=== PATIENT | female | born 1965 | race Caucasian/White ===

== ENCOUNTER 2018-01-23 19:41 | Inpatient (IN) | payer MEDICARE ==
[~2018-01-23] VITALS: Ht 167.6 cm; Wt 90.4 kg
[~2018-01-23 19:41] MED LIST: CLON0.1T PO; METH5TAB2 PO; OXYC-307 PO; estrogen PO
[2018-01-23 20:22] LABS: BASOPHILS # (AUTO) 0.02 x10^3/uL (0-0.1); BASOPHILS % (AUTO) 0 % (0-1); EOSINOPHILS % (AUTO) 0 % (1-7); LYMPHOCYTES # (AUTO) 2.15 x10^3/uL (1-3.4); LYMPHOCYTES % (AUTO) 14 % (22-44); MD NO; MEAN CORPUSCULAR HEMOGLOBIN 26.8 pg (27.0-34.8); MEAN CORPUSCULAR VOLUME 83.9 fL (80-100); MEAN PLATELET VOLUME 9.1 fL (7.4-10.4); MONOCYTES # (AUTO) 1.06 x10^3/uL (0.2-0.8); MONOCYTES % (AUTO) 7 % (2-9); NEUTROPHILS # (AUTO) 12.06 x10^3/uL (1.8-6.8); NEUTROPHILS % (AUTO) 79 % (42-75); PLATELET COUNT 215 x10^3/uL (130-400); RED BLOOD COUNT 6.53 x10^6/uL (3.82-5.3); RED CELL DISTRIBUTION WIDTH 17.4 % (9.6-15.2)
[2018-01-23 20:32] LABS: ALBUMIN 3.1 g/dL (3.4-5.0); ANION GAP 10 mmol/L (5-15); CALCIUM 8.5 mg/dL (8.5-10.1); CHLORIDE 98 mmol/L (98-107)
[2018-01-23 20:35] LABS: CREATININE 0.92 mg/dL (0.55-1.02)
[2018-01-23 20:44] LABS: TROPONIN I 0.137 ng/mL (0.000-0.045)
[2018-01-23] MEDS ORDERED: ASPIRIN 81 MG TABLET CHEW ONE ×2 (20:48→20:49)
[2018-01-23] MEDS ORDERED: ASPIRIN 81 MG TABLET CHEW PO ONE (21:00)
[2018-01-23] MEDS ORDERED: FUROSEMIDE 40 MG/4 ML ONE (21:08)
[2018-01-23] MEDS ORDERED: FUROSEMIDE 40 MG/4 ML IV ONE (21:30)
[2018-01-23] MEDS ORDERED: HEPARIN 5,000 UNITS/ML, 1ML ONE (21:43)
[2018-01-23] MEDS ORDERED: HEPARIN 25,000 UNITS/500ML PMX 500 ML ONE (21:43)
[2018-01-23] MEDS: HEPARIN 25,000 UNITS/500ML PMX 500 ML IV PRN (21:52)
[2018-01-23] MEDS ORDERED: HEPARIN 5,000 UNITS/ML, 1ML IV ONE (22:00)
[2018-01-23] MEDS ORDERED: GUAIFENESIN/DM 200-20MG, 10ML UDC PO PRN (22:30)
[2018-01-23] MEDS ORDERED: ACETAMINOPHEN 325 MG TABLET PO PRN (22:30)
[2018-01-23] MEDS ORDERED: BISACODYL 10 MG SUPP PR PRN (22:30)
[2018-01-23] MEDS ORDERED: NITROGLYCERIN 0.4 MG BOTTLE (25 TABS) SL PRN (22:30)
[2018-01-23] MEDS ORDERED: morphine SULFATE 10 MG/ML, 1ML IVPush PRN (22:30)
[2018-01-23] MEDS: FUROSEMIDE 20 MG/2 ML IV SCH (22:30)
[2018-01-23] MEDS ORDERED: ALBUTEROL SULFATE 2.5 MG/3 ML NPPB PRN (22:30)
[2018-01-23] MEDS: NICOTINE 21 MG/24 HR PATCH.TD24 TD SCH (22:30)
[2018-01-23] MEDS ORDERED: POLYETHYLENE GLYCOL 17 GM PACKET PO PRN (22:30)
[2018-01-23] MEDS ORDERED: ONDANSETRON ODT 4 MG PO PRN (22:30)
[2018-01-23 22:42] LABS: FREE T4 (FREE THYROXINE) 1.01 ng/dL (0.76-1.46); THYROID STIMULATING HORMONE 0.246 mIU/L (0.358-3.740)
[2018-01-23 22:53] VITALS: BP 111/75
[2018-01-23] MEDS: SODIUM CHLORIDE FLUSH 10ML SYR IVF SCH (23:24)
[2018-01-24 00:33] LABS: MICROSCOPIC NOT IND
[2018-01-24 00:34] LABS: CULTURE INDICATED? NO
[2018-01-24 02:27] LABS: MEAN CORPUSCULAR HEMOGLOBIN 26.9 pg (27.0-34.8); MEAN CORPUSCULAR HGB CONC 32.2 g/dL (32.4-35.8); MEAN CORPUSCULAR VOLUME 83.7 fL (80-100); MEAN PLATELET VOLUME 10.1 fL (7.4-10.4); PLATELET COUNT 241 x10^3/uL (130-400); RED BLOOD COUNT 6.49 x10^6/uL (3.82-5.3); RED CELL DISTRIBUTION WIDTH 17.1 % (9.6-15.2)
[2018-01-24 02:37] VITALS: BP 108/67
[2018-01-24 02:39] LABS: ANION GAP 10 mmol/L (5-15); CALCIUM 8.5 mg/dL (8.5-10.1); CHLORIDE 98 mmol/L (98-107)
[2018-01-24 02:44] LABS: TROPONIN I 0.179 ng/mL (0.000-0.045)
[2018-01-24 02:46] LABS: ALANINE AMINOTRANSFERASE 38 U/L (12-78); ALKALINE PHOSPHATASE 144 U/L (45-117); BILIRUBIN,TOTAL 0.4 mg/dL (0.2-1.0); CHOL/HDL RATIO 4.8; CHOLESTEROL, TOTAL 157 mg/dL (140-239); CREATININE 0.71 mg/dL (0.55-1.02); HDL CHOL % 21 % (28-40); HDL CHOLESTEROL (DIRECT) 33 mg/dL (40-60); LDL CHOLESTEROL,CALCULATED 96 mg/dL (54-169); LDL/HDL RATIO 2.9 (0.5-3.0); TRIGLYCERIDES 140 mg/dL (50-200); VLDL CHOLESTEROL 28 mg/dL (0-25)
[2018-01-24 02:55] LABS: BASOPHILS # (AUTO) 0.11 x10^3/uL (0-0.1); BASOPHILS % (AUTO) 1 % (0-1); EOSINOPHILS # (AUTO) 0.02 x10^3/uL (0-0.4); EOSINOPHILS % (AUTO) 0 % (1-7); LYMPHOCYTES # (AUTO) 4.55 x10^3/uL (1-3.4); LYMPHOCYTES % (AUTO) 28 % (22-44); MD SCAN; MONOCYTES # (AUTO) 1.54 x10^3/uL (0.2-0.8); MONOCYTES % (AUTO) 9 % (2-9); NEUTROPHILS # (AUTO) 10.27 x10^3/uL (1.8-6.8); NEUTROPHILS % (AUTO) 62 % (42-75)
[2018-01-24] MEDS: HEPARIN 5,000 UNITS/ML, 1ML IV PRN ×3 (04:06→17:27)
[2018-01-24] MEDS: ASPIRIN 81 MG TABLET EC PO SCH (05:34)
[2018-01-24 07:36] VITALS: BP 122/74
[2018-01-24 08:05] LABS: TROPONIN I 0.167 ng/mL (0.000-0.045)
[2018-01-24] MEDS: SENNA/DOCUSATE TABLET PO SCH (08:19)
[2018-01-24] MEDS: SODIUM CHLORIDE FLUSH 10ML SYR IVF SCH ×2 (08:20→21:02)
[2018-01-24] MEDS: FUROSEMIDE 20 MG/2 ML IV SCH ×2 (08:20→16:13)
[2018-01-24] MEDS ORDERED: OXYC-432 PO (10:22)
[2018-01-24] MEDS ORDERED: DULO60CA55 PO (10:22)
[2018-01-24] MEDS ORDERED: DOXE10CA PO (10:27)
[2018-01-24] MEDS ORDERED: GABA300C10 PO (10:27)
[2018-01-24] MEDS ORDERED: ESTR2TAB PO (10:27)
[2018-01-24] MEDS ORDERED: IBUP-1223 PO (10:27)
[2018-01-24] MEDS ORDERED: BUSP7.5T3 PO (10:27)
[2018-01-24] MEDS ORDERED: CLON1TAB11 PO (10:27)
[2018-01-24] MEDS ORDERED: SIMV20TA3 PO (10:27)
[2018-01-24] MEDS ORDERED: OXYcodone/APAP 10/325MG TABLET PO PRN (10:30)
[2018-01-24] MEDS ORDERED: ESTRADIOL 2 MG TABLET PO SCH (10:30)
[2018-01-24] MEDS ORDERED: IBUPROFEN 200 MG TABLET PO PRN (10:30)
[2018-01-24] MEDS ORDERED: GABAPENTIN 300 MG CAPSULE PO SCH (10:30)
[2018-01-24] MEDS ORDERED: DULOXETINE 30 MG CAPSULE.DR PO SCH (10:30)
[2018-01-24] MEDS ORDERED: BUSPIRONE 10 MG TABLET PO SCH (11:00)
[2018-01-24] MEDS ORDERED: ESTRADIOL 1 MG TABLET ONE (12:50)
[2018-01-24] MEDS ORDERED: DULOXETINE 30 MG CAPSULE.DR ONE (12:50)
[2018-01-24] MEDS: ESTRADIOL 2 MG TABLET PO SCH (12:54)
[2018-01-24] MEDS: DULOXETINE 30 MG CAPSULE.DR PO SCH (12:54)
[2018-01-24 12:57] VITALS: BP 118/72
[2018-01-24] MEDS: BUSPIRONE 10 MG TABLET PO SCH ×2 (16:13→21:00)
[2018-01-24] MEDS: GABAPENTIN 300 MG CAPSULE PO SCH ×2 (16:13→21:02)
[2018-01-24] MEDS: OXYcodone/APAP 10/325MG TABLET PO PRN (18:00)
[2018-01-24 18:53] VITALS: BP 121/71
[2018-01-24] MEDS ORDERED: SIMVASTATIN 20 MG TABLET PO SCH (21:00)
[2018-01-24] MEDS ORDERED: DOXEPIN 10 MG CAPSULE PO SCH (21:00)
[2018-01-24] MEDS: SIMVASTATIN 20 MG TABLET PO SCH (21:02)
[2018-01-24] MEDS: DOXEPIN 10 MG CAPSULE PO SCH (21:02)
[2018-01-24] MEDS: NICOTINE 21 MG/24 HR PATCH.TD24 TD SCH (21:03)
[2018-01-25] MEDS: HEPARIN 25,000 UNITS/500ML PMX 500 ML IV PRN ×2 (00:25→18:23)
[2018-01-25] MEDS: HEPARIN 5,000 UNITS/ML, 1ML IV PRN ×3 (01:45→12:56)
[2018-01-25 01:56] VITALS: BP 114/72
[2018-01-25] MEDS: ASPIRIN 81 MG TABLET EC PO SCH (05:20)
[2018-01-25] MEDS: BUSPIRONE 10 MG TABLET PO SCH ×4 (05:20→20:46)
[2018-01-25] MEDS: OXYcodone/APAP 10/325MG TABLET PO PRN ×3 (05:24→20:45)
[2018-01-25] MEDS: SENNA/DOCUSATE TABLET PO SCH (07:23)
[2018-01-25 07:34] VITALS: BP 124/81
[2018-01-25] MEDS: FUROSEMIDE 20 MG/2 ML IV SCH ×2 (07:37→18:07)
[2018-01-25] MEDS: SODIUM CHLORIDE FLUSH 10ML SYR IVF SCH ×2 (07:40→20:46)
[2018-01-25] MEDS: GABAPENTIN 300 MG CAPSULE PO SCH ×3 (07:41→20:45)
[2018-01-25] MEDS: ESTRADIOL 2 MG TABLET PO SCH (07:42)
[2018-01-25] MEDS: DULOXETINE 30 MG CAPSULE.DR PO SCH (07:44)
[2018-01-25 07:55] LABS: MEAN CORPUSCULAR HEMOGLOBIN 26.6 pg (27.0-34.8); MEAN CORPUSCULAR HGB CONC 32.2 g/dL (32.4-35.8); MEAN CORPUSCULAR VOLUME 82.6 fL (80-100); MEAN PLATELET VOLUME 9.2 fL (7.4-10.4); PLATELET COUNT 203 x10^3/uL (130-400); RED BLOOD COUNT 6.68 x10^6/uL (3.82-5.3); RED CELL DISTRIBUTION WIDTH 17.5 % (9.6-15.2)
[2018-01-25 08:18] LABS: ALANINE AMINOTRANSFERASE 30 U/L (12-78); ALBUMIN 2.8 g/dL (3.4-5.0); ANION GAP 10 mmol/L (5-15); CALCIUM 8.3 mg/dL (8.5-10.1); CHLORIDE 100 mmol/L (98-107)
[2018-01-25 08:20] LABS: BASOPHILS # (AUTO) 0.12 x10^3/uL (0-0.1); BASOPHILS % (AUTO) 1 % (0-1); EOSINOPHILS # (AUTO) 0.08 x10^3/uL (0-0.4); EOSINOPHILS % (AUTO) 1 % (1-7); LYMPHOCYTES # (AUTO) 3.37 x10^3/uL (1-3.4); LYMPHOCYTES % (AUTO) 28 % (22-44); MD SCAN; MONOCYTES # (AUTO) 1.13 x10^3/uL (0.2-0.8); MONOCYTES % (AUTO) 9 % (2-9); NEUTROPHILS # (AUTO) 7.33 x10^3/uL (1.8-6.8); NEUTROPHILS % (AUTO) 61 % (42-75)
[2018-01-25 08:21] LABS: ALKALINE PHOSPHATASE 123 U/L (45-117); BILIRUBIN,TOTAL 0.4 mg/dL (0.2-1.0); CREATININE 0.63 mg/dL (0.55-1.02); TOTAL PROTEIN 6.8 g/dL (6.4-8.2)
[2018-01-25 12:45] VITALS: BP 116/72
[2018-01-25] MEDS ORDERED: HEPARIN 5,000 UNITS/ML, 1ML IV PRN (20:30)
[2018-01-25 20:34] VITALS: BP 107/74
[2018-01-25] MEDS: SIMVASTATIN 20 MG TABLET PO SCH (20:45)
[2018-01-25] MEDS: DOXEPIN 10 MG CAPSULE PO SCH (20:46)
[2018-01-25] MEDS ORDERED: HEPARIN 25,000 UNITS/500ML PMX 500 ML IV PRN (21:00)
[2018-01-25] MEDS: NICOTINE 21 MG/24 HR PATCH.TD24 TD SCH (22:30)
[2018-01-26 01:34] VITALS: BP 111/73
[2018-01-26] MEDS: ASPIRIN 81 MG TABLET EC PO SCH (05:52)
[2018-01-26] MEDS: BUSPIRONE 10 MG TABLET PO SCH ×4 (05:52→19:46)
[2018-01-26] MEDS: OXYcodone/APAP 10/325MG TABLET PO PRN ×2 (05:52→17:03)
[2018-01-26 07:57] VITALS: BP 121/74
[2018-01-26] MEDS: DULOXETINE 30 MG CAPSULE.DR PO SCH (08:08)
[2018-01-26] MEDS: GABAPENTIN 300 MG CAPSULE PO SCH ×3 (08:08→19:45)
[2018-01-26] MEDS: ESTRADIOL 2 MG TABLET PO SCH (08:08)
[2018-01-26 08:21] LABS: BASOPHILS # (AUTO) 0.11 x10^3/uL (0-0.1); BASOPHILS % (AUTO) 1 % (0-1); EOSINOPHILS # (AUTO) 0.11 x10^3/uL (0-0.4); EOSINOPHILS % (AUTO) 1 % (1-7); LYMPHOCYTES # (AUTO) 3.49 x10^3/uL (1-3.4); LYMPHOCYTES % (AUTO) 28 % (22-44); MD NO; MEAN CORPUSCULAR HEMOGLOBIN 26.4 pg (27.0-34.8); MEAN CORPUSCULAR HGB CONC 31.9 g/dL (32.4-35.8); MEAN CORPUSCULAR VOLUME 82.7 fL (80-100); MEAN PLATELET VOLUME 9.1 fL (7.4-10.4); MONOCYTES # (AUTO) 1.02 x10^3/uL (0.2-0.8); MONOCYTES % (AUTO) 8 % (2-9); NEUTROPHILS # (AUTO) 7.88 x10^3/uL (1.8-6.8); NEUTROPHILS % (AUTO) 63 % (42-75); PLATELET COUNT 241 x10^3/uL (130-400); RED BLOOD COUNT 6.85 x10^6/uL (3.82-5.3); RED CELL DISTRIBUTION WIDTH 17.4 % (9.6-15.2)
[2018-01-26 08:27] LABS: ALANINE AMINOTRANSFERASE 31 U/L (12-78); ANION GAP 8 mmol/L (5-15); CALCIUM 8.2 mg/dL (8.5-10.1); CHLORIDE 97 mmol/L (98-107); CREATININE 0.55 mg/dL (0.55-1.02)
[2018-01-26] MEDS ORDERED: REGADENOSON 0.4 MG/5 ML SYRINGE ONE (08:29)
[2018-01-26 08:30] LABS: ALKALINE PHOSPHATASE 122 U/L (45-117); BILIRUBIN,TOTAL 0.4 mg/dL (0.2-1.0); TOTAL PROTEIN 6.9 g/dL (6.4-8.2)
[2018-01-26] MEDS: SENNA/DOCUSATE TABLET PO SCH (09:00)
[2018-01-26] MEDS: SODIUM CHLORIDE FLUSH 10ML SYR IVF SCH ×2 (09:00→19:47)
[2018-01-26] MEDS: FUROSEMIDE 20 MG/2 ML IV SCH (10:27)
[2018-01-26 13:30] VITALS: BP 118/64
[2018-01-26] MEDS: POTASSIUM CHLORIDE 20 MEQ TAB.ER.PRT PO SCH ×2 (13:51→16:14)
[2018-01-26] MEDS ORDERED: SODIUM CHLORIDE 0.9% 1,000 ML IV ONE (15:52)
[2018-01-26] MEDS ORDERED: BUSPIRONE 5 MG TABLET ONE ×2 (16:03→19:37)
[2018-01-26] MEDS: FUROSEMIDE 20 MG TABLET PO SCH (17:03)
[2018-01-26] MEDS: DOXEPIN 10 MG CAPSULE PO SCH (19:46)
[2018-01-26] MEDS: SIMVASTATIN 20 MG TABLET PO SCH (19:46)
[2018-01-26 20:00] VITALS: BP 113/72
[2018-01-26] MEDS: NICOTINE 21 MG/24 HR PATCH.TD24 TD SCH (22:30)
[2018-01-27 02:30] VITALS: BP 110/69
[2018-01-27 04:09] VITALS: BP 110/69
[2018-01-27] MEDS ORDERED: BUSPIRONE 5 MG TABLET ONE ×2 (05:38→20:45)
[2018-01-27] MEDS: ASPIRIN 81 MG TABLET EC PO SCH (05:40)
[2018-01-27] MEDS: OXYcodone/APAP 10/325MG TABLET PO PRN ×3 (05:41→20:49)
[2018-01-27] MEDS: BUSPIRONE 10 MG TABLET PO SCH ×4 (05:41→20:50)
[2018-01-27 08:05] VITALS: BP 105/68
[2018-01-27] MEDS: DULOXETINE 30 MG CAPSULE.DR PO SCH (08:08)
[2018-01-27] MEDS: GABAPENTIN 300 MG CAPSULE PO SCH ×3 (08:08→20:49)
[2018-01-27] MEDS: ESTRADIOL 2 MG TABLET PO SCH (08:08)
[2018-01-27] MEDS: SENNA/DOCUSATE TABLET PO SCH (08:09)
[2018-01-27] MEDS: SODIUM CHLORIDE FLUSH 10ML SYR IVF SCH ×2 (08:09→20:52)
[2018-01-27] MEDS: FUROSEMIDE 20 MG TABLET PO SCH ×2 (08:09→17:34)
[2018-01-27] MEDS ORDERED: MIDAZOLAM 1 MG/ML, 5ML ONE (11:48)
[2018-01-27] MEDS ORDERED: TICAGRELOR 90 MG TABLET ONE (11:48)
[2018-01-27] MEDS ORDERED: FENTANYL PF 100 MCG/2ML ONE ×2 (11:48→12:28)
[2018-01-27] MEDS ORDERED: HEPARIN 1,000 UNITS/ML, 10ML ONE (11:49)
[2018-01-27] MEDS ORDERED: NITROGLYCERIN 5 MG/ML, 10ML ONE (11:49)
[2018-01-27] MEDS ORDERED: LIDOCAINE-MPF 1%, 5ML ONE (11:49)
[2018-01-27] MEDS ORDERED: VERAPAMIL 2.5 MG/ML, 2ML ONE (11:49)
[2018-01-27] MEDS ORDERED: BIVALIRUDIN 250 MG ONE (11:49)
[2018-01-27] MEDS ORDERED: DIPHENHYDRAMINE 50 MG/ML, 1ML ONE (12:23)
[2018-01-27] MEDS: SODIUM CHLORIDE 0.9% 1,000 ML IV SCH ×2 (13:35→20:48)
[2018-01-27 16:00] VITALS: BP 106/73
[2018-01-27 20:14] VITALS: BP 123/80
[2018-01-27] MEDS: SIMVASTATIN 20 MG TABLET PO SCH (20:49)
[2018-01-27] MEDS: NICOTINE 21 MG/24 HR PATCH.TD24 TD SCH (20:51)
[2018-01-27] MEDS: DOXEPIN 10 MG CAPSULE PO SCH (20:51)
[2018-01-28 01:45] VITALS: BP 106/72
[2018-01-28] MEDS: SODIUM CHLORIDE 0.9% 1,000 ML IV SCH ×2 (04:28→13:00)
[2018-01-28 05:14] LABS: BASOPHILS % (AUTO) 2 % (0-1); EOSINOPHILS # (AUTO) 0.12 x10^3/uL (0-0.4); EOSINOPHILS % (AUTO) 1 % (1-7); LYMPHOCYTES # (AUTO) 3.43 x10^3/uL (1-3.4); LYMPHOCYTES % (AUTO) 31 % (22-44); MD NO; MEAN CORPUSCULAR HEMOGLOBIN 26.6 pg (27.0-34.8); MEAN CORPUSCULAR HGB CONC 31.9 g/dL (32.4-35.8); MEAN CORPUSCULAR VOLUME 83.3 fL (80-100); MEAN PLATELET VOLUME 9.3 fL (7.4-10.4); MONOCYTES % (AUTO) 10 % (2-9); NEUTROPHILS # (AUTO) 6.36 x10^3/uL (1.8-6.8); NEUTROPHILS % (AUTO) 57 % (42-75); PLATELET COUNT 236 x10^3/uL (130-400); RED BLOOD COUNT 7.14 x10^6/uL (3.82-5.3); RED CELL DISTRIBUTION WIDTH 17.3 % (9.6-15.2)
[2018-01-28 05:25] LABS: CHLORIDE 102 mmol/L (98-107)
[2018-01-28 05:31] LABS: ANION GAP 6 mmol/L (5-15); CALCIUM 9.2 mg/dL (8.5-10.1); CREATININE 0.65 mg/dL (0.55-1.02)
[2018-01-28] MEDS: ASPIRIN 81 MG TABLET EC PO SCH (05:41)
[2018-01-28] MEDS: BUSPIRONE 10 MG TABLET PO SCH ×2 (05:41→11:44)
[2018-01-28 07:15] VITALS: BP 98/64
[2018-01-28] MEDS: FUROSEMIDE 20 MG TABLET PO SCH (08:28)
[2018-01-28] MEDS: OXYcodone/APAP 10/325MG TABLET PO PRN (08:28)
[2018-01-28] MEDS: DULOXETINE 30 MG CAPSULE.DR PO SCH (08:28)
[2018-01-28] MEDS: GABAPENTIN 300 MG CAPSULE PO SCH (08:29)
[2018-01-28] MEDS: SODIUM CHLORIDE FLUSH 10ML SYR IVF SCH (08:29)
[2018-01-28] MEDS: SENNA/DOCUSATE TABLET PO SCH (08:29)
[2018-01-28] MEDS: ESTRADIOL 2 MG TABLET PO SCH (08:29)
[2018-01-28] MEDS ORDERED: FURO20TA3 PO (10:23)
[2018-01-28] MEDS ORDERED: POTA10TA11 PO (10:23)
[2018-01-28 12:59] VITALS: BP 129/77
== END 2018-01-28 14:10 | disposition home or self-care (01) | DRG 280 ==
LOC: ED 21:45 → EDIP 21:47 → 5SO 22:29 → DCLOUNGE 01-28 13:51
PROVIDERS: ADMIT Hospitalist; ATTEND Hospitalist
PROC: 4A023N8 Measurement of Cardiac Sampling and Pressure, Bilateral, Percutaneous Approach (ICD-10-PCS; principal; 2018-01-27)
PROC: B2111ZZ Fluoroscopy of Multiple Coronary Arteries using Low Osmolar Contrast (ICD-10-PCS; 2018-01-27)
DX: I21.4 Non-ST elevation (NSTEMI) myocardial infarction (principal); J96.21 Acute and chronic respiratory failure with hypoxia; I50.41 Acute combined systolic (congestive) and diastolic (congestive) heart failure; F11.20 Opioid dependence, uncomplicated; E44.0 Moderate protein-calorie malnutrition; I42.9 Cardiomyopathy, unspecified; D72.829 Elevated white blood cell count, unspecified; D75.1 Secondary polycythemia; E87.6 Hypokalemia; F17.210 Nicotine dependence, cigarettes, uncomplicated; F41.9 Anxiety disorder, unspecified; G89.29 Other chronic pain; I11.0 Hypertensive heart disease with heart failure; J44.9 Chronic obstructive pulmonary disease, unspecified; M19.90 Unspecified osteoarthritis, unspecified site; M41.9 Scoliosis, unspecified; M79.7 Fibromyalgia; M81.0 Age-related osteoporosis without current pathological fracture; Z82.49 Family history of ischemic heart disease and other diseases of the circulatory system; Z90.710 Acquired absence of both cervix and uterus; Z68.32 Body mass index [BMI] 32.0-32.9, adult
CPT/HCPCS: 36415; 71045; 78452; 80048; 80053; 80061; 81003; 82040; 83880; 84439; 84443; 84484; 85025; 85379; 85520; 93005; 93017; 93306; 93460; 96374; 96375; 99156; 99157; 99291; C1769; C1894; G0378; J0583; J1644; J1940; J2250; J2785; J3010; A9502; C9898; J1200; J7030; Q9967

== ENCOUNTER 2018-07-15 00:57 | Emergency (ER) | payer MEDICARE ==
[~2018-07-15] VITALS: Ht 167.6 cm; Wt 80.0 kg
[~2018-07-15 00:57] MED LIST changes: +BUSP7.5T3 PO; -CLON0.1T PO; +CLON0.1T22 PO; +CLON1TAB11 PO; +DOXE10CA PO; +DULO60CA55 PO; +ESTR2TAB PO; +FURO20TA3 PO; +GABA300C10 PO; +IBUP-1223 PO; +OXYC-432 PO; +POTA10TA11 PO; +SIMV20TA3 PO
--- NOTE | 2018-07-15 01:09 | NUR ---
PT BASELINE OF 2L NC AT HOME.
--- NOTE | 2018-07-15 02:05 | NUR ---
PT AWARE OF NEED FOR UA. STATES UNABLE TO PROVIDE AT THIS TIME.
[2018-07-15 02:12] VITALS: BP 152/70
[2018-07-15 02:24] LABS: BASOPHILS # (AUTO) 0.06 x10^3/uL (0-0.1); BASOPHILS % (AUTO) 1 % (0-1); EOSINOPHILS # (AUTO) 0.08 x10^3/uL (0-0.4); EOSINOPHILS % (AUTO) 1 % (1-7); LYMPHOCYTES # (AUTO) 2.49 x10^3/uL (1-3.4); LYMPHOCYTES % (AUTO) 23 % (22-44); MD NO; MEAN CORPUSCULAR HEMOGLOBIN 30.2 pg (27.0-34.8); MEAN CORPUSCULAR HGB CONC 33.6 g/dL (32.4-35.8); MEAN CORPUSCULAR VOLUME 89.7 fL (80-100); MEAN PLATELET VOLUME 9.1 fL (7.4-10.4); MONOCYTES # (AUTO) 1.02 x10^3/uL (0.2-0.8); MONOCYTES % (AUTO) 9 % (2-9); NEUTROPHILS # (AUTO) 7.24 x10^3/uL (1.8-6.8); NEUTROPHILS % (AUTO) 67 % (42-75); PLATELET COUNT 207 x10^3/uL (130-400); RED BLOOD COUNT 5.45 x10^6/uL (3.82-5.3); RED CELL DISTRIBUTION WIDTH 13.7 % (9.6-15.2)
[2018-07-15 02:33] LABS: ALANINE AMINOTRANSFERASE 45 U/L (12-78); ALBUMIN 4.1 g/dL (3.4-5.0); ANION GAP 7 mmol/L (5-15); CALCIUM 8.7 mg/dL (8.5-10.1); CHLORIDE 104 mmol/L (98-107); CREATININE 0.72 mg/dL (0.55-1.02); SALICYLATE LEVEL 3.9 mg/dL (2.8-20.0)
[2018-07-15 02:35] LABS: ALKALINE PHOSPHATASE 155 U/L (45-117); BILIRUBIN,TOTAL 0.3 mg/dL (0.2-1.0); TOTAL PROTEIN 7.6 g/dL (6.4-8.2)
[2018-07-15 03:05] LABS: ACETAMINOPHEN < 2 mcg/mL (10-30)
--- NOTE | 2018-07-15 03:15 | NUR ---
PT STILL UNABLE TO PROVIDE UA.
== END 2018-07-15 04:19 | disposition home or self-care (01) ==
LOC: ED 01:56
DX: F11.20 Opioid dependence, uncomplicated (principal); I25.2 Old myocardial infarction; I50.9 Heart failure, unspecified; Z90.49 Acquired absence of other specified parts of digestive tract; Z90.710 Acquired absence of both cervix and uterus; Z87.891 Personal history of nicotine dependence
CPT/HCPCS: 36415; 80053; 80307; 80329; 82140; 85025; 93005; 99284; G0480